=== PATIENT | male | born 1965 | race Caucasian/White ===

== ENCOUNTER 2017-11-18 17:25 | Emergency (ER) | payer OTHER ==
[~2017-11-18] VITALS: Ht 175.3 cm; Wt 56.7 kg
[~2017-11-18 17:25] MED LIST: AMOXICILLIN 50500 MG PO; ARICEPT10 MG PO; AUGMENTIN 875875 MG; AUGMENTIN 875875 MG PO; CEFTIN500 MG PO; GAVILAX17 GM PO; GAVILAX8.5 GM PO; GLYCOLAX POWDER17 G1 PO; KEPPRA1000 MG PO; LEVAQUIN 500 M500 M4 PO; METAMUCIL283 GM PO; MODAFINIL200 MG PO; NUVIGIL PO; OXYTROL PATCH; PROBIOTIC1 EAC2 PO; STRESSTABS1 EACH PO; ZANTAC 150MG T150 M1 PO; ZOLOFT 50 MG TA50 M1 PO; ZPAK PO; ZYRTEC10 M2 PO
== END 2017-11-18 19:17 | disposition home or self-care (01) ==
LOC: ER 17:25
DX: Z71.1 Person with feared health complaint in whom no diagnosis is made (principal); Z91.041 Radiographic dye allergy status; Z91.048 Other nonmedicinal substance allergy status; K21.9 Gastro-esophageal reflux disease without esophagitis; Z86.718 Personal history of other venous thrombosis and embolism

== ENCOUNTER 2019-08-26 23:10 | Inpatient (IN) | payer OTHER ==
[~2019-08-26] VITALS: Ht 170.2 cm; Wt 73.5 kg
--- NOTE | ~2019-08-26 | EMS ---
[facility] [address] [place] [address] EMS Patient Care Report Name: RONNIE BEGUM Room #: REG RUBIA Benoit#: [id number] Admission: 08/26/19 Attend Phys: Discharge: Date of : 61 Report #: [id number] THIS REPORT FOR: //name// Report Transmitted: 08/27/2019 00:56 EMS Care Summary [facility] MED-ACT Incident [id number] @ 08/26/2019 21:52 Incident Location [address] [place] [address] Patient AZEB BEGUM Male, 53 Years 1965 Patient Address [address] [place] [address] Patient History Other, Patient Allergies Iodine,Adhesive Tape, Patient Medications Keppra, Donepezil, Tizanidine, Zoloft, Chief Complaint "He was having trouble breathing" Disposition Transported No Lights/[place] Dispatch Reason Breathing Problem Transported To [facility] Narrative Arrived to find pt reclined at the side of his bed in care of SFD. Pt's mother described pt being in acute respiratory distress so she called 911. SFD reported they found pt to have increased work of breathing and SpO2 of 86% upon their arrival. Once on supplemental O2, they reported pt improved. Pt's mother [facility] [address] [place] [address] EMS Patient Care Report Name: RONNIE BEGUM Room #: REG Cy#: [id number] Admission: 08/26/19 Attend Phys: Discharge: Date of : 61 Report #: [id number] reported pt has been in good health lately. 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 She also states that he only has 40% lung capacity. SFD reported pt had temperature of 101. Pt's mother reports pt has not been around anyone sick and has not left the house. Pt is unable to communicate, which is normal for the pt. Pt was lifted to the stair chair and taken down 3 flights of stairs and outside to the cot. Pt was lifted to the cot and loaded into MICU. Pt had no changes in his condition en route. Pt's HR was not treated due to cause possibly being due to an infection. Upon arrival, pt was taken to room 7 and moved to cot via sheet drag. Verbal report given to RN. Initial Vitals @22:40P: 163,BP: 111/49,SpO2: 93, @22:28P: 165,BP: 112/77,SpO2: 95, @22:56P: 159,BP: 112/65,SpO2: 97, @22:33P: 164,SpO2: 94, @22:27P: 164,R: 18,Pain: 0/10,GCS: 10,SpO2: 94,IL Suspected: false @PTATemp: 101F,Glucose: 90,SpO2: 86, Assessments @22:15MENTAL:Other,SKIN:Hot,HEENT:Head/Face: No Abnormalities,Eyes: No Abnormalities,Neck/Airway: No Abnormalities,LUNG SOUNDS:ABDOMEN:PELVIS//GI:EXTREMITIES:PULSE:NEURO:No Abnormalities, Impression Shortness of breath Procedures @22:35Saline Lock 0cc (20 ga) Site: Hand-LeftResponse: UnchangedFailed@22:40Saline Lock 10cc (20 ga) Site: Forearm-LeftResponse: UnchangedSucceeded@22:3312-Lead ECGResponse: UnchangedSucceeded@PTAOxygen FlowRate: 4 Device: Nasal Cannula (NC) Response: ImprovedSucceeded Timeline BULKING MACHINE OPERATOR,Oxygen FlowRate: 4 Device: Nasal Cannula (NC) Response: ImprovedSucceeded, BULKING MACHINE OPERATOR,BP: / M,PULSE: ,RR: R,SPO2: 86 Ox,ETCO2: ,B,PAIN: ,GCS: , 21:50,Call Received 21:50,Psap Call 21:52,Dispatched 21:53,En Route 22:10,On Scene 22:12,At Patient 22:27,BP: / M,PULSE: 164,RR: 18 R,SPO2: 94 Ox,ETCO2: ,BG: ,PAIN: 0,GCS: 10, 22:28,BP: 112/77 M,PULSE: 165,RR: R,SPO2: 95 Ox,ETCO2: ,BG: ,PAIN: ,GCS: , 22:33,12-Lead ECG,Response: UnchangedSucceeded, 22:33,BP: / M,PULSE: 164,RR: R,SPO2: 94 Ox,ETCO2: ,BG: ,PAIN: ,GCS: , 22:33,Depart Scene [address] [address] EMS Patient Care Report Name: SHYRONNIE KEVIN Room #: REG RUBIA M.R.#: [id number] Admission: 08/26/19 Attend Phys: Discharge: Date of : 61 Report #: [id number] 22:35,Saline Lock 0cc 20 ga Site: Hand-Left,Response: UnchangedFailed, 22:40,Saline Lock 10cc 20 ga Site: Forearm-Left,Response: UnchangedSucceeded, 22:40,BP: 111/49 M,PULSE: 163,RR: R,SPO2: 93 Ox,ETCO2: ,BG: ,PAIN: ,GCS: , 22:56,BP: 112/65 M,PULSE: 159,RR: R,SPO2: 97 Ox,ETCO2: ,BG: ,PAIN: ,GCS: , 23:03,At Destination 23:33,Call Closed Disclaimer v1.1 Copyright 2020 [email or web address] This EMS Care Summary contains data elements from the applicable legal record (which may be displayed differently). It is designed to provide pertinent information for the following purposes: continuity of care, clinical quality, and state data reporting. The complete legal record is available to ED staff and administrators of the receiving hospital in [facility] Patient Tracker. All data is provided "as is."
[2019-08-26 23:22] VITALS: BP 107/59
[2019-08-27 00:18] LABS: EOSINOPHILS 0.8 % (0.0-3.0); HEMATOCRIT 44.6 % (42.0-52.0); HEMOGLOBIN 15.6 gm/dL (14.0-18.0); LYMPHOCYTES 2.2 % (24.0-44.0); MCH 31.6 pg (26.0-34.0); MCHC 34.9 g/dL (28.0-37.0); MCV 90.6 fL (80.0-100.0); MONOCYTES 0.8 % (1.0-8.0); PLATELET COUNT 244 thou/uL (150-400); POLYS 96.2 % (36.0-66.0); RBC 4.93 mil/uL (4.50-6.00); RDW 13.2 % (10.5-14.5); WBC 13.5 thou/uL (4.0-11.0)
[2019-08-27 00:29] LABS: ANION GAP 17 mmol/L (7-16); BUN 29 mg/dL (7-18); CALCIUM 8.5 mg/dL (8.5-10.1); CHLORIDE 104 mmol/L (98-107); CO2 21 mmol/L (21-32); GLUCOSE 140 mg/dL (74-106); POTASSIUM 3.5 mmol/L (3.5-5.1); SODIUM 142 mmol/L (136-145)
[2019-08-27 00:39] LABS: ALBUMIN 3.2 g/dL (3.4-5.0); SGOT 65 U/L (15-37); SGPT 107 U/L (30-65); TOTAL BILIRUBIN 0.8 mg/dL (0.2-1.0); TOTAL PROTEIN 7.4 g/dL (6.4-8.2); TROPONIN-I <0.06 ng/mL (<0.06)
--- NOTE | 2019-08-27 00:49 | NUR ---
MOTHER REPORTS PT SLEEPS ON 2 PILLOWS, HAS TRACHEA NARROWING, STATES HE DOES NOT RECOGNIZE PAIN, BECOMES AGITATED, YOU MUST POINT TO AN AREA TO ASSESS PAIN. PER MOM, INTAKE CIRUITS WORK, OUTAKE CIRCUITS DO NOT USED TO BEING WITH PARENTS CANNOT USE CALL LIGHT
[2019-08-27 02:45] VITALS: BP 90/52
[2019-08-27 04:16] VITALS: BP 90/52
--- NOTE | 2019-08-27 08:01 | NUR ---
PT ARRIVED AT THE UNIT AROUND 0400, PT IS AWAKE, ALERT AND ORIENTED TO SELF, SR ON THE MONITOR, ASESSMENTS CHARTED, ON 2L NC,PT REMAINS COOPERATIVE AND STABLE, PASSED ON REPAORT TO DAY NURSE
[2019-08-27 08:23] VITALS: BP 84/41
--- NOTE | 2019-08-27 09:05 | EKG ---
[facility] [place] [address] ELECTROCARDIOGRAM REPORT Name: RONNIE BEGUM Room #: 362-P ADM IN M.R.#: [id number] Admission: 08/27/19 Attend Phys: Jillian Perez Discharge: Date of : 61 Report #: [id number] THIS REPORT FOR: cc: Rivas Napier MD, Christopher B. MD Lundgren, Craig H. MD [facility] ~ THIS REPORT FOR: //name// [facility] ED Test Date: 2019-08-27 Test Time: 00:17:52 Pat Name: RONNIE BEGUM Department: Room: 362 Gender: M Program Director/Traffic Director: IVAN : 1965 Requested By: Brittani Edgar Order Number: [id number] MD: Sanchez Ferguson Measurements Intervals [place] Rate: 144 P: 61 VT: 107 QRS: 10 QRSD: 88 T: 30 QT: 350 QTc: 542 Interpretive Statements Sinus tachycardia Low voltage Prolonged QT interval Compared to ECG 08/05/2014 17:16:45 Low QRS voltage now present Prolonged QT interval now present Heart rate has increased Electronically Signed On 08-27-2019 9:05:24 CDT by Sanchez Ferguson [email or web address] <ELECTRONICALLY SIGNED> By: Sanchez Ferguson MD, [facility] 08/27/19 0905 0017 0017 Sanchez Ferguson MD, FAC /EPI
[2019-08-27] MEDS ORDERED: TIZANIDINE HCL4 M1 PO (11:11)
[2019-08-27] MEDS ORDERED: ALLEGRA ALLERGY60 MG PO (11:14)
[2019-08-27 11:53] VITALS: BP 87/50
--- NOTE | 2019-08-27 15:10 | NUR ---
chart review. cm consult. cm visited with pt mom via phone call gareth [phone]. intro to cm and dcp, unable to visit with pt rt nonverbal. on o2 per nc and no prior home oxygen. " lives with parents in house. no stair. has elevator. use wheel chair. he needs help with everything incl he cant feed himself. he has an aid who come out 5 day/week and then has 2 therapist from [facility] who have not been out since april. have transportation for him. able to take him places"/mom. will cont following as needed for dc needs. dcp home with parent when medical stable.
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
[2019-08-27 21:41] VITALS: BP 94/43
[2019-08-28] VITALS (7 sets, daily range): BP systolic 87–103; BP diastolic 38–63
[2019-08-28 06:44] LABS: URINE BILIRUBIN NEGATIVE (Negative); URINE BLOOD NEGATIVE (Negative); URINE CLARITY CLEAR; URINE COLOR YELLOW; URINE GLUCOSE-RANDOM* NEGATIVE (Negative); URINE KETONES NEGATIVE (Negative); URINE PROTEIN (DIPSTICK) TRACE (Negative); URINE SPECIFIC GRAVITY 1.025 (1.005-1.035); URINE UROBILINOGEN 0.2 E.U./dl (0.2-1.0)
[2019-08-28 06:45] LABS: URINE LEUKOCYTES-REFLEX 1+ (Negative); URINE NITRITE-REFLEX POSITIVE (Negative)
[2019-08-28 06:58] LABS: CASTS None Seen /LPF (None Seen); CRYSTALS None Seen /LPF (None Seen); SQUAMOUS 0-3 Few /LPF (0-3)
[2019-08-28 06:59] LABS: URINE RBC None Seen /HPF (0-2); WBC CLUMPS Few (None Seen)
[2019-08-28 07:00] LABS: HEMATOCRIT 35.1 % (42.0-52.0); MCH 31.5 pg (26.0-34.0); MCHC 34.2 g/dL (28.0-37.0); MCV 92.2 fL (80.0-100.0); RBC 3.81 mil/uL (4.50-6.00); RDW 13.8 % (10.5-14.5); WBC 15.3 thou/uL (4.0-11.0)
[2019-08-28 07:23] LABS: CREATININE 0.8 mg/dL (0.7-1.3)
[2019-08-28 07:25] LABS: POTASSIUM 2.8 mmol/L (3.5-5.1)
--- NOTE | 2019-08-28 07:37 | NUR ---
ASSUMED CARE AT 1900, PT IN NO DISTRESS, NO PAIN OR RESP SYMPTOMS. TEMP 98 AXI OVERNIGHT. INCONT OF URINE, PLACED EXTERNAL CATHETER, DRAINED VERY DARK, ODOROUS URINE, SAMPLE SEND TO LAB. IVF AND ABX INFUSED OVERNIGHT. Q2 TURNS. NO OTHER CONCERNS, SHIFT REPORT GIVEN AT 0700.
--- NOTE | 2019-08-28 08:28 | NUR ---
WOUND CARE CONSULT; DUE TO ENHANCED ISOLATION FOR COVID 19 LIMITED ASSESSMENT BY THIS WOUND NURSE, DISCUSSED STATUS W/ ACID BLOWER GAGAN, STATES PT HAS NO WOUNDS BUT IS IN NEED OF LOW AIR LOSS PUMP TO BED DUE TO DEBILITY, WILL ORDER PUMP, INFORMED RN TO RECONSULT WOUND NURSE IF NEEDED, WILL SIGN OFF RECOMMENDATIONS; PRESSURE RELIEF, OFF LOADING, MONITOR SKIN CLOSELY LOW AIR LOSS PUMP TO BED ACID BLOWER AWARE
--- NOTE | 2019-08-28 11:55 | NUR ---
ASSUMED CARE AT 0700, SHIFT ASSESSMENT DONE, MEDS GIVEN. BP LOW THIS AM, DR CASTELLANOS. POTTASIUM 2.8, REPLACEMENT ORDERED. PT IS A QAUD, FEEDER, ON 1.5 L NC. NO SKIN ISSUES, FEEDER, HAD A BM THIS AM. HAD A CT SCAN DONE THIS AM. Q2 TURNS ORDERED. WILL CONTINUE TO ASSESS AND ASSIST WITH ADLs NEEDED.
[2019-08-29 05:40] VITALS: BP 101/61
--- NOTE | 2019-08-29 05:56 | NUR ---
PT ALERT QUADRAPLEGIC APHISIC ABLE TO RESPOND TO BASIC QUESTIONS VIA NODDING. TOTAL PT CARE. NO NEW ACUTE FINDINGS SO FAR THIS SHIFT
[2019-08-29 06:54] LABS: ABSOLUTE NEUTROPHILS 5.6 thou/uL (1.4-8.2); BASOPHILS 0.8 % (0.0-2.0); EOSINOPHILS 5.6 % (0.0-3.0); HEMATOCRIT 39.4 % (42.0-52.0); LYMPHOCYTES 12.8 % (24.0-44.0); MCH 32.1 pg (26.0-34.0); MCV 97.2 fL (80.0-100.0); MONOCYTES 7.7 % (1.0-8.0); PLATELET COUNT 127 thou/uL (150-400); POLYS 73.1 % (36.0-66.0); RBC 4.06 mil/uL (4.50-6.00); RDW 14.9 % (10.5-14.5); WBC 7.7 thou/uL (4.0-11.0)
[2019-08-29 08:48] VITALS: BP 106/71
[2019-08-29 12:09] VITALS: BP 105/71
--- NOTE | 2019-08-29 18:30 | NUR ---
PT ASSESSED AT START OF SHIFT. PT IS ALERT AND APPEARS TO UNDERSTAND BUT DOES NOT VERBALIZE BUT YES, NO. HE DID MOUTH THE WORDS TO THE NATIONAL ANTHEM. FED PUREED DIET W/ PUDDING CONSISTENCY LIQUIDS. MEDS ARE TO BE CRUSHED. 2ND COVID OBTAINED AND SENT TO LAB AT 1600. AFEBRILE. VERY WEAK NONPRODUCTIVE COUGH. PLACED EXTERNAL MALE CATHETER AND URNIE NOTED TO BE CLEAR, LIGHT YELLOW. MARCIE AREA REDDENED AND Z-GUARD APPLIED NEEDED.
[2019-08-29 19:12] VITALS: BP 95/0
--- NOTE | 2019-08-29 21:54 | NUR ---
SECOND COVID NEG PROVIDER AND CRAYON MOLDING MACHINE OPERATOR NOTIFIED.
--- NOTE | 2019-08-29 22:14 | NUR ---
PT RESTING IN BED WATCHING TV. [facility] CONTACT BLUNTED AFFECT. IVF INTACT. SCDS AND BED ALARM ON. PT HAS MALE EXT CATHETER INTACT. PT REMAINS CONTRACTED AND REPOSITIONED BY STAFF. COMPLIANT WITH MEDS AND SNACK FED TO PT. LUNGS DIMINISHED. O2 PER NC.
[2019-08-30 04:05] VITALS: BP 102/62
[2019-08-30 08:08] VITALS: BP 108/69
[2019-08-30 15:30] VITALS: BP 98/65
--- NOTE | 2019-08-30 18:07 | NUR ---
PT IS UNABLE TO TALK AND PT CANNOT FOLLOW COMMANDS, PT'S VS ARE STABLE, PT IS ON O2 1L/MIN/NC, PT DOES NOT HAVE SOB AND FEVER, PT NEEDS HELP MEALS AND CHANGE POSITION, PT HAS TRANSFERED TO [facility] 4W AT 1530PM, RN HAS GIVING REPORT .
--- NOTE | 2019-08-30 18:23 | NUR ---
Patient transferred from [facility] at approximately 3pm. Patient is total care, max assist x's 2 with q 2 turns. He in incntinent of bowel ad bladder. Patient can't speak but is able to mouth words and smile. He loves to watch races, mouths every word of the [place]. Mother here to visit. She is concerned because her son is having mre difficulty coughing up phlegm. Also, she has requested that another X-Ray be done (last recorded chest x-ray was on 08/26/19). Mother has requested a Pulmnary Consult, is looking for a Pulmonary Doctor for her son (he has 40% lung copacity). Will report to on-coming nurse.
[2019-08-30 20:03] VITALS: BP 117/73
[2019-08-31 03:41] LABS: ALBUMIN 2.4 g/dL (3.4-5.0); CALCIUM 7.9 mg/dL (8.5-10.1); CREATININE 0.7 mg/dL (0.7-1.3); PHOSPHORUS 3.9 mg/dL (2.5-4.9); POTASSIUM 3.1 mmol/L (3.5-5.1)
--- NOTE | 2019-08-31 04:18 | NUR ---
ASSUMED CARE OF PT AT 1900. PT IS ALERT AND ANSWERS QUESTIONS PERIODICALLY WITH A YES/NO OR NONVERBAL TILTING OF HIS HEAD. HE DENIES ANY PAIN OR DISCOMFORT. LUNGS ASSESSED AND SOUND CLEAR. CONTINUAL CHECKS AND REPOSITIONING IS DONE FOR COMFORT OF THE PT. Z GUARD APPLIED TO BOTTOM FOR PROTECTION. FALL PRECAUTIONS ARE IN PLACE. PT IS IN HIS BED AND APPEARS TO BE SLEEPING. VSS AT THIS TIME. WILL CONTINUE TO MONITOR.
[2019-08-31 07:32] VITALS: BP 106/57
[2019-08-31] MEDS ORDERED: CEFUROXIME500 MG PO ×2 (10:23→15:57)
[2019-08-31] MEDS ORDERED: FLOMAX0.4 MG PO ×2 (10:23→15:57)
--- NOTE | 2019-08-31 13:04 | NUR ---
Nutrition follow up: Pt passed clinical swallow eval on 08/26 for very restricted dysphagia diet of pureed foods w/ pudding/spoon thick liquids only. STATION INSTALLER AND REPAIRER notes indicated liquids tend to spill from oral cavity and STATION INSTALLER AND REPAIRER had to scrape spoon trial against top of pt's teeth to remove bolus; pt made no attempts. Despite these struggles, pt eating rather well, eating 50-70% of most meals the last few days. Is fully dependent; max assist per EMR. Ensure pudding or Magic Cup being sent TID for supplements. Unable to apply any other nutrition interventions, given restricted diet needs. Note new discharge orders planned for this date. Will follow nutrition course if any changes to discharge plans.
--- NOTE | 2019-08-31 14:13 | NUR ---
CARE TEAM INDICATED THAT PT IS MEDICALLY STABLE TO DC HOME THIS DAY. PHYSICIAN ASKED THAT HH SERVICES PT, OT, ST, NURSING, AND SW SERVICES BE ORDERED. CM MET WITH PT AND MOTHER AT BEDSIDE THIS DAY TO DISCUSS ARRANGING THESE SERVICES BUT MOTHER INDICATED THAT PT HAD THESE SERVICES THROUGH HIS TBI WAIVER. SHE INDICATED THAT SHE JUST NEEDS SOME ADDITIONAL HOMEMAKER SERVICES OVER NIGHT AND SHE HAS A CONTACT DENNYS WITH [facility] AT HOME THAT SHE CAN CONTACT TO IMPLEMENT THOSE. CM NOTIFIED PHYSICIAN AND HE INDICATED THAT PT COULD DC HOME WITH NO NEEDS THIS DAY. PT'S MOTHER TO PROVIDE TRANSPORT HOME. NO OTHER CM INTERVENTION INDICATED. CASE CLOSED.
[2019-08-31 14:36] VITALS: BP 106/57
--- NOTE | 2019-08-31 15:38 | NUR ---
Assumed pt care this am, pt is total care and feeder. meidcation are crushed and given with pudding. 1L of O2 vis NC maintained, incontinent of both bowel and bladder. 2 large bm's noted today. Mother wt the bedside, q2 turns done through out the shift. Taken down for a video swallow test late in the am. S,all frequent feedings and hydrtation done through out the day, pureed dient and thickened liquids are well tolerated. POC followed with no sign or verbalizations of distress noted. Mother of the pt requested to speak to the MD, spoke to the mother via telephone. DC instructions given, medications sent direct to the pharmacy as per MD. IV removed, pt was dressed up and placed on the wc. Pt has gone home with the mother and is now dc.
== END 2019-08-31 15:50 | disposition home or self-care (01) | DRG 871 ==
LOC: ER 23:10 → EROBS 08-27 02:19 → 3W 08-27 02:19 → 4W 08-30 15:53
PROVIDERS: Nurse Practitioner Family; Specialist; Student in an Organized Health Care Education/Training Program; ADMIT Hospitalist; ATTEND Hospitalist
DX: A41.51 Sepsis due to Escherichia coli [E. coli] (principal); J96.01 Acute respiratory failure with hypoxia; J69.0 Pneumonitis due to inhalation of food and vomit; N12 Tubulo-interstitial nephritis, not specified as acute or chronic; B96.20 Unspecified Escherichia coli [E. coli] as the cause of diseases classified elsewhere; N40.0 Benign prostatic hyperplasia without lower urinary tract symptoms; R65.20 Severe sepsis without septic shock; E87.6 Hypokalemia; K75.9 Inflammatory liver disease, unspecified; G40.909 Epilepsy, unspecified, not intractable, without status epilepticus; K21.9 Gastro-esophageal reflux disease without esophagitis; Z20.828 Contact with and (suspected) exposure to other viral communicable diseases; Z87.820 Personal history of traumatic brain injury; Z91.041 Radiographic dye allergy status; Z91.09 Other allergy status, other than to drugs and biological substances
CPT/HCPCS: 10040; 10045; 10879